=== PATIENT | female | born 1950 | race African-American/Black ===

== ENCOUNTER 2017-05-26 21:46 | Emergency (ER) | payer OTHER, MEDICARE ==
[~2017-05-26 21:46] MED LIST: ADVA100A INH; TAB-TAB PO; VENTAER INH; VITAMIN D PO; ZITH250T PO
[2017-05-26 21:48] VITALS: BP 180/84; PULSE 62; RESP 16; TEMP 98.4; O2SAT 99
[2017-05-26] MEDS ORDERED: IBUP800T23 PO (23:04)
--- NOTE | 2017-05-26 23:22 | RADRPT ---
EXAM DATE/TIME: 05/26/2017 23:16 [place] COMPARISON: No previous studies available for comparison. INDICATIONS : Left foot, fifth digit pain post fall. MEDICAL HISTORY : Arthritis. SURGICAL HISTORY : None. ENCOUNTER: Initial ACUITY: 4 - 6 days PAIN SCORE: 5/10 LOCATION: Left foot FINDINGS: Examination of the fifth digit of the left foot demonstrates an oblique fracture through the distal d iaphysis of the proximal phalanx of the fifth digit with approximately 2.5 mm of medial displacement of the distal fragment. No obvious intra-articular extension CONCLUSION: Fracture through the distal diaphysis of the proximal phalanx of the fifth ray as above.. Glynn Ayala MD on May 26, 2017 at 23:19 Board Certified Radiologist. This report was verified electronically.
[2017-05-27] MEDS ORDERED: NORC5TAB PO (00:12)
[2017-05-27] MEDS ORDERED: CYCL1TAB29 PO (00:12)
--- NOTE | 2017-05-27 00:12 | PD ---
HPI . Fall Chief Complaint: Back/ Neck Pain or Injury Time Seen by Provider: 23:03 Travel History International Travel<30 days: No Contact w/Intl Traveler<30days: No Traveled to known affect area: No History of Present Illness HPI This patient presents with a chief complaint of injury sustained in a fall days ago. She states that she fell in the bathroom and struck the right low back on the edge of the toilet and her left fifth toe on the door. She comes in complaining with continued pain in her right low back and her left fifth toe. She reports no relief of her pain with ibuprofen. The pain in the back is exacerbated by movement. The pain in the toe is exacerbated by walking. She rates her back pain is 10/10. PFSH Past Medical History Cancer: No Diabetes: No Diminished Hearing: No Glaucoma: No Hepatitis: No Hiatal Hernia: No Hypertension: Yes Thyroid Disease: No Tetanus Vaccination: > 5 Years Influenza Vaccination: No ?: Not Menopausal: Yes : 5 Para: 2 Miscarriage: 3 Past Surgical History Abdominal Surgery: Yes (LAP BAND 2007) Gynecologic Surgery: Yes (HYSTERECTOMY) Hysterectomy: Yes (PARTIAL) Neurologic Surgery: Yes ( LUMBAR LAMINECTOMY) Other Surgery: Yes Social History Alcohol Use: Yes (occasional ) Tobacco Use: No Substance Use: No Allergies-Medications (Allergen,Severity, Reaction): Coded Allergies: No Known Allergies (Verified , 05/26/17) Reported Meds & Prescriptions Reported Meds & Active Scripts Active Review of Systems Except as stated in HPI: all other systems reviewed are Neg Musculoskeletal: Positive: Pain (right low back and left fifth toe) Physical Exam Narrative GENERAL: Awake and alert and in no acute distress. SKIN: Warm and dry. HEAD: Atraumatic. Normocephalic. EYES: Pupils equal and round. NECK: Trachea midline. CARDIOVASCULAR: Regular rate and rhythm. RESPIRATORY: No accessory muscle use. MUSCULOSKELETAL: No obvious deformities. No edema. The patient is twisting and turning and bending her low back without any distress at all. Her left fifth toe has no obvious deformity. It is tender to palpation. There is no significant bruising or swelling. NEUROLOGICAL: Awake and alert. No obvious cranial nerve deficits. Motor grossly within normal limits. Normal speech. PSYCHIATRIC: Appropriate mood and affect; insight and judgment normal. Data Data Last Documented VS Vital Signs Date Time Temp Pulse Resp B/P Pulse Ox O2 Delivery O2 Flow Rate FiO2 05/26/17 21:48 98.4 62 16 180/84 99 Room Air Orders Toe (Min 2vws) (05/26/17 23:03) MDM Medical Decision Making Medical Screen Exam Complete: Yes Emergency Medical Condition: Yes Differential Diagnosis Differential diagnosis of back injury includes but is not limited to contusion, muscle strain, ligamentous strain, compression fracture, spinous process fracture Differential diagnosis of extremity trauma includes but is not limited to fracture, sprain or strain, dislocation, contusion Narrative Course This patient presents for evaluation treatment of injuries which were sustained in a fall 5 days ago. She is complaining with back pain but has no limitation in her movement. Therefore, she does not have a significant back injury. She had tenderness to palpation of the left fifth toe without deformity. Last Impressions Toe X-Ray 05/26/17 0936 Signed Impressions: Service Date/Time: Sunday, May 26, 2017 23:16 - CONCLUSION: Fracture through the distal diaphysis of the proximal phalanx of the fifth ray as above.. Glynn Ayala MD Diagnosis Primary Impression: Fracture of fifth toe, left, closed Qualified Code: S92.502A - Closed fracture of phalanx of left fifth toe, initial encounter Additional Impression: Low back strain Qualified Code: S39.012A - Strain of lumbar region, initial encounter Patient Instructions: General Instructions, Low Back Strain (DC), Toe Fracture (DC) Med/Other Pt SpecificInfo: Prescription(s) given Scripts Cyclobenzaprine (Flexeril)10 Mg Tab10 Mg PO TID #30 TAB Ref 0 Prov:Radha Lopez MD 05/27/17 Hydrocodone-Acetaminophen ([place])5-325 mg Tab1 Tab PO Q4H PRN (PAIN) #12 TAB Ref 0 Prov:Radha Lopez MD 05/27/17 Disposition: 01 DISCHARGE HOME Condition: Stable Radha Lopez MD May 27, 2017 00:12
== END 2017-05-27 00:24 | disposition home or self-care (01) ==
LOC: NEPE 21:46
DX: S92.502A Displaced unspecified fracture of left lesser toe(s), initial encounter for closed fracture (principal); S39.012A Strain of muscle, fascia and tendon of lower back, initial encounter; S92.512A Displaced fracture of proximal phalanx of left lesser toe(s), initial encounter for closed fracture; W01.198A Fall on same level from slipping, tripping and stumbling with subsequent striking against other object, initial encounter; Y92.002 Bathroom of unspecified non-institutional (private) residence as the place of occurrence of the external cause
CPT/HCPCS: 73660; 99284

== ENCOUNTER 2018-01-30 06:43 | Day surgery (SDC) | payer OTHER ==
[~2018-01-30] VITALS: Ht 170.2 cm; Wt 102.0 kg
[~2018-01-30 06:43] MED LIST changes: -ADVA100A INH; +CYCL10TA PO; +IBUP1TAB7 PO; +NORC5TAB PO; -TAB-TAB PO; -VENTAER INH; -VITAMIN D PO; -ZITH250T PO
[2018-01-30] MEDS ORDERED: IOHEXOL 350 MG/ML 50 ML BTL (for Cath Lab) OTHER ONE (06:44)
[2018-01-30] MEDS ORDERED: NS 1000P @30 MLS/HR (KVO) IV SCH (07:00)
[2018-01-30 07:45] VITALS: BP 154/83; PULSE 67; RESP 18; O2SAT 97
[2018-01-30] MEDS ORDERED: ASPI-516 CHEW (07:48)
[2018-01-30] MEDS ORDERED: ALEV220T14 PO (07:48)
[2018-01-30 07:59] LABS: AUTOMATED NEUTROPHIL # 2.3 TH/MM3 (1.8-7.7); BASOPHIL % 0.9 % (0.0-2.0); EOSINOPHIL # 0.2 TH/MM3 (0-0.4); EOSINOPHIL % 4.9 % (0.0-4.0); HEMATOCRIT 38.9 % (35.0-46.0); HEMOGLOBIN 12.6 GM/DL (11.6-15.3); LYMPH % 31.2 % (9.0-44.0); LYMPHOCYTE # 1.4 TH/MM3 (1.0-4.8); MEAN CELL VOLUME 86.2 FL (80.0-100.0); MEAN CORPUSCULAR HEMOGLOBIN 27.9 PG (27.0-34.0); MEAN CORPUSCULAR HGB CONC 32.4 % (32.0-36.0); MEAN PLATELET VOLUME 8.4 FL (7.0-11.0); MONO % 13.6 % (0.0-8.0); MONOCYTE # 0.6 TH/MM3 (0-0.9); NEUT % 49.4 % (16.0-70.0); PLATELET COUNT 232 TH/MM3 (150-450); RED BLOOD COUNT 4.51 MIL/MM3 (4.00-5.30); RED CELL DISTRIBUTION WIDTH 15.3 % (11.6-17.2); WHITE BLOOD COUNT 4.6 TH/MM3 (4.0-11.0)
[2018-01-30 08:10] LABS: PROTHROMBIN TIME - PATIENT 10.3 SEC (9.8-11.6)
[2018-01-30 08:13] LABS: BICARBONATE 31.2 MEQ/L (21.0-32.0); CALCIUM 8.6 MG/DL (8.5-10.1); CREATININE 0.66 MG/DL (0.50-1.00)
[2018-01-30] MEDS ORDERED: HEPARIN-NS/PF FLUSH BAG 2,000 ML IV FLUSH ONE (08:30)
[2018-01-30] MEDS ORDERED: HEPARIN SODIUM - IV 10,000 UNITS/10 ML VIAL ONE (08:31)
[2018-01-30] MEDS ORDERED: NITROGLYCERIN INJ 5 ML ONE (08:31)
[2018-01-30] MEDS ORDERED: MIDAZOLAM HCL 2 MG/2 ML VIAL ONE (08:31)
[2018-01-30] MEDS ORDERED: VERAPAMIL HCL 5 MG/2 ML VIAL ONE (08:31)
[2018-01-30] MEDS ORDERED: LIDOCAINE HCL 1% PF 30 ML VIAL ONE (08:32)
[2018-01-30] MEDS ORDERED: hydrALAZINE HCL 20 MG/ML VIAL ONE (09:21)
--- NOTE | 2018-01-30 09:33 | CATHPROC ---
[facility] HIS Report Study Information Study Number Admission Scheduled Start Study Start [id number] Jan 30 2018 6:43AM 01/30/2018 Jan 30 2018 8:29AM [facility] Cardiac Catheterization Admit Source Facility Department Other [facility] - Mobile Application Tester Physician and Clinical Staff Initial Guille Alejandro Corrosion Control Specialist Irma Langston RN Corrosion Control Specialist Gagandeep Nagel RN Recorder Vianney Bernal,RT(R) ScrJessica QuiñonesRT(R) (BS) Procedures Performed Procedure Location (Site) Vessel Name Coronary Angiograms LCA Left Coronary Coronary Angiograms RCA Right Coronary L Heart Cath Equipment Time Manager Of Corporate Communications Description Size Mfg Part Number Used/Scraped TRANSDUCER, TRUWAVE [id number] 08:33 BAZAN ANDERSEN * Used W/STOCKCOCK *[id number] [id number] *[id number] [id number] *[id number] 08:33 Panelfly PACK, CCL CUSTOM * Used *[id number] 08:33 Panelfly SUPPORT, ARTERIAL ADULT [id number] *[id number] Used BAND, RADIAL COMPRESSION TR [id number] 09:19 Net[employer] MEDICAL 24CM Used SHORT 24 *[id number] 08:33 Competitor WIRE, EXCHANGE 260CM 3MMJ 260CM Used *[id number] PROBE COVER, STERILE [id number] 09:05 Visual.ly * Used ULTRASOUND W/ GEL *[id number] 08:33 NAMIC MANIFOLD, 4 PORT * Used *[id number] 08:33 NYCOMED OMNIPAQUE, 350 MG, 150ML 150ML [id number] Used [id number] 08:33 WALLACE [employer] BLANKET,WARM AIR CCL * Used *[id number] SHEATH, FR6 TRANSRADIAL RM*[id number] 08:33 TERTookitaki FR 6 Used SLENDER 10CM *[id number] History: Current Medications Medication Dosage/Unit Route Frequency Last Date/Time Taken ASA LISINOPRIL Statins (any) History: Allergies Allergy Reaction No Known Allergies History: Risk Factors Family History of Hypertension Dyslipidemia Previous [place] Previous Heart Failure Premature CAD Yes Yes No No No Prior Valve Prior PCI Prior CABG Surgery No Yes No Cerebrovascular Peripheral Artery Chronic Lung On Dialysis Diabetes Disease Disease Disease No No No No No History: Stress Tests Stress or Imaging Studies Performed Yes Standard Exercise Stress Test No Stress Echo No Stress Test SPECT Stress Test SPECT Result Stress Test SPECT Ischemia Risk/Extent Yes Positive Intermediate Stress Test CMR No Cardiac CTA Coronary Calcium Score No No History: Other Current Smoker Method Quit Packs a Day Years Used Pack Years No Cigarettes 40 Years Ago 1 5 5 Labs Hgb (g/dl) Hct (%) WBC (l/cumm) Platelets (thousands) 11.60-17.00 35.00-51.00 4.00-11.00 150.00-450.00 12.6 38.9 4.6 232 Glucose (mg/dl) BUN (mg/dl) Creatinine (mg/dl) BUN:Creatinine (1:x) 74.00-106.00 7.00-18.00 0.50-1.30 10.00-20.00 93 17 0.6 28.3 Na (meq/l) K (meq/l) 136.00-145.00 3.50-5.10 142 4.2 INR (PTT:PT) 0.90-1.10 1 CPK-MB (ng/ML) 0.50-3.60 Not Drawn Medication Medication Total Dose (Bolus/Oral) Medication Total Dosage/Unit 1% XYLOCAINE 5 mL FENTANYL 25 mcg HYDRALAZINE 10 mg RADIAL COCKTAIL 5 mL (Bolus) VERSED 0.5 mg Medications (Bolus/Oral) Medication Time Given Dosage/Unit Administered By Reason VERSED 01/30/2018 8:54:07 AM 0.5 mg RobeGagandeep 0.5 mg VERSED given in lab by Gagandeep Nagel RN in Right Antecubital via Peripheral IV. Ordered by Guille Mary FENTANYL 01/30/2018 8:55:15 AM 25 mcg Robe Gagandeep 25 mcg FENTANYL given in lab by Gagandeep Nagel RN in Right Antecubital via Peripheral IV. Ordered by Guille Marr 1% XYLOCAINE 01/30/2018 8:56:50 AM 5 mL Guille Goodrich 5 mL 1% XYLOCAINE given in lab by Guille Goodrich in Right Radial via Subcutaneous. RADIAL COCKTAIL 01/30/2018 9:07:02 AM 5 mL (Bolus) Guille Goodrich 5 mL (Bolus) RADIAL COCKTAIL given in lab by Guille Goodrich in Right Radial via Radial. Using [S olution Name]. Reason: Ntg 200mcg Verapamil 2.5mg Heparin 4100U. HYDRALAZINE 01/30/2018 9:28:54 AM 10 mg Irma Langston 10 mg HYDRALAZINE given in lab by Irma Langston RN in Right Antecubital via Peripheral IV. Ordered by Guille Goodrich Medication (Drip) Medication Time Given Dosage/Unit Concentration/Unit Diluent (ml) Solution IV Solutions 01/30/2018 8:29:27 AM 50 mL (IV) NaCl .9 IV Solutions given in lab by Irma Langston RN in Right Antecubital via Peripheral IV. Pump/Drip Samy w using NaCl .9. Initial Case Assessment Cardiovascular HR Rhythm NIBP Chest Pain 66 SR 192/92 0 Edema Present Skin color Skin None Normal Warm Dry Circulatory - Right Pulses Dorsalis Pedis Femoral Radial 2 2 2 Scale (0,1,2,3,4,d) Circulatory - Left Pulses Dorsalis Pedis Femoral Radial 2 2 Scale (0,1,2,3,4,d) Neurological State Oriented to time-place- Alert Moves all extremities person Respiration - General Respiration Rate SpO2 (%) (B/min) 17 99 Chronological Log Time Study Chronological Log 8:28:55 Patient arrived via Bed. 8:28:56 Patient Name, D.O.B, / Armband Verified By R.N. 8:28:56 Consent signed by the physician and the patient and verified by the Mobile Application Tester staff. 8:28:57 Pre-op and post- op instructions given; patient acknowledges understanding of instructions. 8:28:57 Verbal Stimulation=2 Physical Stimulation=2 Airway=2 Respiration=2 TOTAL=8. (0=absent, 1=li mited, 2=present) 8:28:59 Allens test performed on the right radial and ulnar artery. 8:29:18 Patient has been NPO for More than 6Hrs. 8:29:18 Skin Breakdown- none per pt 8:29:21 Patient Warmer Placed on the Table. 8:29:23 Vinod Prominences Protected 8:29:26 A # 20 IV was noted in the Antecubital (right). Grade = 0 8:29:27 IV Solutions given in lab by Irma Langston RN in Right Antecubital via Peripheral IV. Pum p/Drip Flow using NaCl .9. 8:29:27 History and physical on the chart or being dictated. Assessment: Initial Case, HR=66 BPM, Rhythm=SR, SURF=765/92 mmhg, Chest Pain=0, Edema=None, Col or=Normal, Skin = Warm, Dry Right Pulses: Victor M Ped=2, Femoral=2, Radial=2 8:29:28 Left Pulses: Victor M Ped=2, Femoral=2 Neurological: State=Alert, Ox3, MADDOX Respiration: Resp=17 B/min, SpO2=99 % Vitals capture started with the following parameters, Patient=Adult, Interval=5 min, Initial Pre uixyo=061 mmHg, 8:33:40 Deflation Rate=5 mmHg, Cuff placed on Unknown 8:35:06 HR=66 bpm, XUHX=243/92 mmhg, SpO2=99.0 %, Resp=17 B/min 8:36:35 Reference ECG taken 8:40:09 HR=59 bpm, RGTH=384/92 mmhg, SpO2=99.0 %, Resp=16 B/min 8:40:32 Right Radial and groin(s) prepped with 2% chlorhexidine, and draped after a 3 min. waiting t abeba. 8:42:30 MD paged 8:44:29 HR=64 bpm, NAPQ=484/89 mmhg, PuR1=142.0 %, Resp=13 B/min 8:44:41 MD responded 8:44:46 Pressure channel 1 zeroed. 8:49:05 MD arrived. 8:49:30 HR=68 bpm, SOLW=099/92 mmhg, MrZ4=183.0 %, Resp=20 B/min 8:54:07 0.5 mg VERSED given in lab by Gagandeep Nagel, RN in Right Antecubital via Peripheral IV. Order ed by Guille Goodrich 8:54:31 HR=66 bpm, LMLN=349/99 mmhg, SpO2=99.0 %, Resp=14 B/min 25 mcg FENTANYL given in lab by Gagandeep Nagel, RN in Right Antecubital via Peripheral IV. Ordered by Guille Goodrich 8:55:15 G. Time Out. Correct patient, correct procedure, correct physician, power injector not loaded with contrast with surgical 8:55:42 team present. Time Out Concurred by MD and individual staff in procedure. 8:56:46 Case Start 8:56:50 5 mL 1% XYLOCAINE given in lab by Guille Goodrich in Right Radial via Subcutaneous. 8:59:30 HR=63 bpm, PSDT=342/98 mmhg, SpO2=97.0 %, Resp=14 B/min 9:04:33 HR=60 bpm, EFUQ=589/95 mmhg, SpO2=98.0 %, Resp=12 B/min 9:04:50 Ultrasound brought in for access 9:05:50 Access site was Right Radial Artery via ultrasound. A SHEATH, FR6 TRANSRADIAL SLENDER 10CM FR 6 was advanced into the Radial (right) using the Percu tandelores 9:06:18 technique. 5 mL (Bolus) RADIAL COCKTAIL given in lab by Guille Goodrich in Right Radial via Radial. Tony ng [Solution Name]. 9:07:02 Reason: Ntg 200mcg Verapamil 2.5mg Heparin 4100U. A JR 4.0 INFINITI CATHETER FR 5 was advanced over a wire. OMNIPAQUE, 350 MG, 150ML 150ML was use d for 9:07:26 injections. Recorded Pressure: LV, HR=77, Condition=Condition 1 9:09:09 (Left Ventricle) LV 161/1/7 Recorded Pressure: LV, Ao, HR=77, Condition=Condition 1 9:09:20 (Left Ventricle) LV 165/2/8, (Aorta) Ao 159/87/119 9:09:32 HR=72 bpm, FCJI=428/94 mmhg, SpO2=99.0 %, Resp=15 B/min Recorded Pressure: Ao, HR=73, Condition=Condition 1 9:09:34 (Aorta) Ao 164/90/122 9:09:41 The RCA was injected and visualized at various angles. OMNIPAQUE, 350 MG, 150ML 150ML used. After removing the current catheter a JL 3.5 INFINITI CATHETER FR 5 was advanced over a WIRE, EX CHANGE 260CM 9:11:09 3MMJ 260CM. 9:14:29 HR=94 bpm, UXJK=845/101 mmhg, SpO2=95.0 %, Resp=18 B/min 9:15:39 The LCA was injected and visualized at various angles. OMNIPAQUE, 350 MG, 150ML 150ML used. 9:18:09 Catheter was removed 9:18:58 Case End Radial Compression Device Used. 11 mLs of air placed in BAND, RADIAL COMPRESSION TR SHORT 24 24C M. Affected 9:19:13 hand 99 % O2 saturation. 9:19:15 No case complications noted. 9:19:32 HR=61 bpm, RKGR=854/105 mmhg, SpO2=96.0 %, Resp=16 B/min 9:20:07 Cine recording checked. 9:20:32 A Left Heart Cath was performed. 9:20:35 Holding Area notified. 9:24:33 HR=65 bpm, RZJW=298/103 mmhg, SpO2=98.0 %, Resp=12 B/min 10 mg HYDRALAZINE given in lab by Irma Langston, RN in Right Antecubital via Peripheral IV. O rdered by Kp, 9:28:54 Guille Levine 9:28:57 Vitals capture stopped. 9:29:19 NIBP STAT measurement started. 9:30:07 RXUT=792/89 mmhg 9:31:00 Patient moved to flower hospitaler End Study - Contrast Media Used In Study Contrast Total Opened (mL) Total Used (mL) Total Wasted (mL) Omnipaque 35 35 0 End Study - Maximum Contrast Load Max Contrast Load (mL) 848.5 End Study - Radiation Exposure Fluoro Time (minutes) 2.8 End Study - Patient Disposition Complications Transferred To Interventional Outcome No Telemetry Bed No attempt made
[2018-01-30] MEDS ORDERED: MISC INFORMATION XX ONE (10:00)
--- NOTE | 2018-01-30 10:31 | MA ---
cc: Guille Goodrich DO DATE: 01/30/2018 DATE OF PROCEDURE: 01/30/2018. PROCEDURE: Left heart catheterization, coronary angiogram, moderate sedation 20 minutes. PREPROCEDURE DIAGNOSIS: Preoperative cardiovascular exam, abnormal stress test. POSTPROCEDURE DIAGNOSIS: Disease in a diagonal which covers an overall small area. Otherwise, no significant disease. MEDICATIONS: 1. Versed 0.5 mg. 2. Fentanyl 25 mcg. 3. Heparin 4100 units. 4. Nitro 200 5. Verapamil 2.5 mg. 6.. Hydralazine 10 mg. CONTRAST USED: 35 mL. FLUOROSCOPY: 2.8 minutes. MODERATE SEDATION: 20 minutes. FRAILTY SCORE: 3. ESTIMATED BLOOD LOSS: 10 mL. PROCEDURAL SUMMARY: Lainey Galan is a pleasant 67-year-old female who sees my partner, Dr. Stubbs, in the office and underwent stress testing in anticipation of bariatric surgery. This was abnormal in the anterior apical and apical portions. Because of this, she was recommended cardiac catheterization. Risks, benefits and alternatives were explained to her and she consented as such. She was brought to the lab and prepped in the usual sterile fashion. The right radial artery was accessed using a modified Seldinger technique and placement of a 5/6 Slovak Slender Sheath. This was easily aspirated and flushed. A JR4 was advanced over a J-wire to the ascending aorta and across the aortic valve for measurement of left ventricular pressure. This was pulled back across the aortic valve showing no significant gradient of aortic stenosis. JR4 was used for selective angiography of the right coronary artery system. This was exchanged out for a JL 3.5, which was used for selective angiography of the left coronary artery system. JL 3.5 was removed over a J wire. A radial band was placed over the arteriotomy site for hemostasis. 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 ANGIOGRAPHIC SUMMARY: LEFT MAIN: Normal-sized vessel with adequate reflux and no significant disease. It bifurcates into an LAD and circumflex. LAD: Normal-sized vessel with 10% disease in the proximal portion. Mid to distal portion has 20% disease. It gives off 2 major diagonals with the first diagonal having 40% ostial stenosis. The second diagonal has 70% stenosis at the ostium. Overall, this is a vessel of 1.5 mm and covers a small territory. LEFT CIRCUMFLEX: Normal-sized vessel with mild luminal irregularities. It gives off 1 major obtuse marginal which has an upper and lower branch and are tortuous, but no significant disease. RCA: Large vessel with mild luminal irregularities distally. It gives off a PDA and a PLB with no significant disease. LVEDP: 8. IMPRESSIONS: 1. Preoperative cardiovascular exam. 2. Abnormal stress test with anterior apical and apical ischemia. 3. Coronary artery disease with small vessel disease of an ostial diagonal. RECOMMENDATIONS: 1. Janny underwent cardiac catheterization and during this was found to have mild disease throughout other than a second diagonal. Second diagonal covers an overall small area of her myocardium and intervention on this would impede on a large LAD. 2. I would treat this medically as the patient was asymptomatic and does not correlate with the area of ischemia on stress test. 3. As far as surgery goes, as this is a small territory and she has no significant major coronary artery disease, she may proceed as an intermediate risk. 4. She will followup with Dr. Stubbs for further recommendations. Thank you for allowing me to see Lainey Galan. If there are any questions, please do not hesitate to call. DO WILLIAM TerryP/SB , 09:38 AM , 10:30 AM
[2018-01-30] MEDS ORDERED: ONDANSETRON HCL 4 MG/2 ML VIAL ONE (11:18)
--- NOTE | 2018-01-30 12:21 | EKG ---
Date Performed: 01/30/2018 Time Performed: 07:40:18 PTAGE: 67 years EKG: Sinus bradycardia. Normal ECG except for rate PREVIOUS TRACING : 09/17/2008 09.09 DOCTOR: Carmelo Cruz Interpretating Date/Time 01/30/2018 12:19:25
== END 2018-01-30 12:40 | disposition home or self-care (01) ==
LOC: HDOC 06:43 → HDIC 06:43 → HDOC 12:40
PROVIDERS: ATTEND Nuclear Medicine Nuclear Cardiology
DX: I25.10 Atherosclerotic heart disease of native coronary artery without angina pectoris (principal); R94.39 Abnormal result of other cardiovascular function study; E78.5 Hyperlipidemia, unspecified; I10 Essential (primary) hypertension; Z01.818 Encounter for other preprocedural examination
CPT/HCPCS: 80048; 85025; 85610; 85730; 93005; 93458; 99152; 99153; C1769; C1893; J0360; J1644; J2250; J2405; J3010; Q9967